=== PATIENT | male | born 1960 ===

== ENCOUNTER 2016-05-02 13:51 | Outpatient (CLI) | payer MEDICARE ==
[2016-05-02 14:30] LABS: Basophils % (Auto) 0.3 % (0.0-1.8); Eosinophils % (Auto) 0.4 % (0.0-4.3); Hematocrit 39.8 % (35.5-45.6); Mean Corpuscular HGB Conc 30 % (32-34); Mean Corpuscular Hemoglobin 22 pg (28-32); Mean Corpuscular Volume 74 fl (84-94); Platelet Count 245 K/mm3 (140-440); Red Blood Count 5.38 M/mm3 (3.65-5.03); Red Cell Distribution Width 22.1 % (13.2-15.2)
[2016-05-02 14:51] LABS: Albumin 2.6 g/dL (3.9-5); BUN/Creatinine Ratio 25.6; Bilirubin,Total 0.5 mg/dL (0.1-1.2); Calcium 7.4 mg/dL (8.4-10.2); Total Protein 5.3 g/dL (6.3-8.2)
[2016-05-02 15:51] LABS: Chloride 96.6 mmol/L (98-107); Potassium 4.7 mmol/L (3.6-5.0)
== END 2016-05-02 13:52 | disposition home or self-care (01) ==
LOC: LABHHL 13:51
PROVIDERS: ATTEND Family Medicine
DX: I13.0 Hypertensive heart and chronic kidney disease with heart failure and stage 1 through stage 4 chronic kidney disease, or unspecified chronic kidney disease (principal); N18.3 Chronic kidney disease, stage 3 (moderate); I50.9 Heart failure, unspecified
CPT/HCPCS: 36415; 80053; 85025